=== PATIENT | male | born 1995 | race Caucasian/White ===

== ENCOUNTER 2024-03-03 12:07 | Outpatient (CLI) | payer OTHER, SELFPAY ==
[2024-03-03 23:48] LABS: Chlamydia DNA Amplified* NOT DETECTED (No Detected); GC DNA Amplified* NOT DETECTED (No Detected)
== END 2024-03-03 12:08 | disposition home or self-care (01) ==
LOC: LKVREF 12:08
PROVIDERS: Visit Provider Physician Assistant
DX: Z20.2 Contact with and (suspected) exposure to infections with a predominantly sexual mode of transmission (principal); Z11.3 Encounter for screening for infections with a predominantly sexual mode of transmission
CPT/HCPCS: 87491; 87591